=== PATIENT | female | born 1955 | race Caucasian/White ===

== ENCOUNTER → 2024-02-03 | Outpatient (CLI) | payer MEDICARE, OTHER ==
[2024-02-03 07:17] LABS: African American GFR (CKD) 28 (>60 ml/min/1.73 sqM); Blood Urea Nitrogen 44 mg/dL (7-17); Non-African American GFR(CKD) 24 (>60 ml/min/1.73 sqM)
--- NOTE | 2024-02-04 09:38 | CT ---
EXAMINATION TYPE: CT ChestAbdPelvis wo con CT DLP: 1184 mGycm, Automated exposure control for dose reduction was used. DATE OF EXAM: 02/03/2024 8:33 AM COMPARISON: None. CLINICAL INDICATION:Female, 68 years old with history of R10.9 UNSPECIFIED ABDOMINAL PAIN;, abd pain Technique: CT ChestAbdPelvis wo con; Multiple axial images were obtained. Two-dimensional coronal and sagittal reconstructions were obtained. Contrast used: mL of , Oral contrast used: with Oral Contrast Findings: CHEST: LUNGS/ PLEURA: Severe degeneration changes of the lumbar. Trace bilateral pleural effusions. No focal consolidation, pneumothorax present. No pulmonary nodules AIRWAY: Patent and unremarkable. HEART: Size within normal limits. MEDIASTINUM: No gross evidence of adenopathy. VASCULATURE: No aortic aneurysm. Left chest wall [id number] tip terminating in the superior vena cava. MUSCULOSKELETAL: No acute osseous abnormalities. SOFT TISSUES/LYMPH NODES: Unremarkable. LOWER NECK: Multiple surgical clips present in the lower neck. ABDOMEN: ABDOMEN LIVER: Nodular liver suggesting. GALLBLADDER AND BILE DUCTS: Unremarkable. PANCREAS: Unremarkable. SPLEEN: Unremarkable. ADRENAL GLANDS: Unremarkable. KIDNEYS AND URETERS: No evidence of hydronephrosis or renal calculus. The ureters are unremarkable. PELVIS BLADDER: Unremarkable REPRODUCTIVE: Unremarkable. ABDOMEN & PELVIS STOMACH AND BOWEL: No evidence of bowel obstruction. Scattered colonic diverticula without evidence f or inflammation suggest diverticulitis. PERITONEUM: No evidence of pneumoperitoneum. Large amount of free fluid of the abdomen. Mesenteric ed sara in the left upper quadrant VASCULATURE: No evidence of aortic aneurysm. This course of the arterial vasculature. MUSCULOSKELETAL: No acute osseous abnormalities LYMPH NODES: The upper abdomen near the gastroesophageal junction with peripheral calcification large st measuring 5 mm series 3 image [id number]. SOFT TISSUE/ABDOMINAL WALL: Unremarkable IMPRESSION: 1. There is no evidence for diverticulitis. There are scattered colonic diverticula present. No evid ence of free fluid throughout the abdomen limits evaluation for inflammation. 2. Nodular contour to liver suggestive of cirrhosis, Large amount of abdominal ascites and mesenteri c edema in the left upper quadrant. 3. Upper abdominal surgical changes of the gastric lumen with 2 peripherally calcified lesions withi n the gastrohepatic ligament possibly representing lymph nodes. Correlate with history of malignancy or interval change. Comparison with outside imaging may be of benefit.
== END | disposition home or self-care (01) ==
LOC: RADCTMAIN 06:21
PROVIDERS: ATTEND Family Medicine
DX: K57.30 Diverticulosis of large intestine without perforation or abscess without bleeding (principal); K76.89 Other specified diseases of liver; K31.89 Other diseases of stomach and duodenum; R18.8 Other ascites
CPT/HCPCS: 71250; 74176; 82565; 84520

== ENCOUNTER 2024-02-04 14:02 | Inpatient (IN) | payer MEDICARE, OTHER ==
--- NOTE | 2024-02-04 15:13 | ED ---
Abdominal Pain HPI - General Source: patient, RN notes reviewed Mode of arrival: wheelchair Limitations: no limitations <Paulette Bean - Last Filed: 02/04/24 15:11> - General Source: RN notes reviewed, old records reviewed Mode of arrival: wheelchair Limitations: no limitations - History of Present Illness MD Complaint: abdominal pain, other (Ascites) -: days(s) Location: diffuse Migration to: no migration Severity: moderate Severity scale (1-10): 6 Quality: cramping, stabbing, aching Consistency: constant Improves With: nothing Worsens With: nothing Associated Symptoms: nausea, vomiting Treatments Prior to Arrival: other (0) <Mark Joe - Last Filed: 02/06/24 23:02> - General Chief Complaint: Abdominal Pain Stated Complaint: Abd Pain Time Seen by Provider: 02/04/24 15:11 - History of Present Illness Initial Comments: Quick note: 68-year-old female presented to the ER with a chief complaint of abdominal pain. Patient has a past medical history significant of ovarian cancer. Patient has been having abdominal pain for over a week. CT scan was performed yesterday and found to have peritoneal fluid. Patient sent here by Dr. Florence for evaluation and possible paracentesis. Patient also was endorsing nausea. Denies any fevers. (Paulette Bean) Patient is a 60-year-old female to ER for evaluation of abdominal pain. History of ovarian cancer and has abdominal pain worsening for a week now. Patient believes she has ascitic fluid and will need paracentesis. (Mark Joe) - Related Data Home Medications Medication Instructions Recorded Confirmed Anastrozole [Arimidex] 1 mg PO HS 02/04/24 02/04/24 Citalopram Hydrobromide [CeleXA] 20 mg PO HS 02/04/24 02/04/24 Levothyroxine Sodium [Synthroid] 175 mcg PO DAILY 02/04/24 02/04/24 Losartan [Cozaar] 25 mg PO HS 02/04/24 02/04/24 amLODIPine [Norvasc] 5 mg PO DAILY 02/04/24 02/04/24 Allergies Allergy/AdvReac Type Severity Reaction Status Date / Time Penicillins Allergy Rash/Hives, Verified 02/04/24 16:28 swelling Review of Systems ROS Other: All systems not noted in ROS Statement are negative. <DrutessyPaulette - Last Filed: 02/04/24 15:11> ROS Other: All systems not noted in ROS Statement are negative. <Mark Joe - Last Filed: 02/06/24 23:02> ROS Statement: Those systems with pertinent positive or pertinent negative responses have been documented in the HPI. Past Medical History Past Medical History: Cancer, Hypertension Additional Past Medical History / Comment(s): ovarian cancer Past Surgical History: Adenoidectomy, Hysterectomy, Tonsillectomy Past Psychological History: Anxiety Smoking Status: Never smoker Past Alcohol Use History: None Reported Past Drug Use History: Marijuana <DrutessyPaulette - Last Filed: 02/04/24 15:11> General Exam Limitations: no limitations <DrutessyPaulette - Last Filed: 02/04/24 15:11> General appearance: alert, in no apparent distress Head exam: Present: atraumatic, normocephalic, normal inspection Eye exam: Present: normal appearance, PERRL, EOMI. Absent: scleral icterus, conjunctival injection, periorbital swelling ENT exam: Present: normal exam, mucous membranes moist Neck exam: Present: normal inspection. Absent: tenderness, meningismus, lymphadenopathy Respiratory exam: Present: normal lung sounds bilaterally. Absent: respiratory distress, wheezes, rales, rhonchi, stridor Cardiovascular Exam: Present: regular rate, normal rhythm, normal heart sounds. Absent: systolic murmur, diastolic murmur, rubs, gallop, clicks GI/Abdominal exam: Present: soft, normal bowel sounds. Absent: distended, tenderness, guarding, rebound, rigid Extremities exam: Present: normal inspection, full ROM, normal capillary refill. Absent: tenderness, pedal edema, joint swelling, calf tenderness Back exam: Present: normal inspection Neurological exam: Present: alert, oriented X3, CN II-XII intact Psychiatric exam: Present: normal affect, normal mood Skin exam: Present: warm, dry, intact, normal color. Absent: rash <Mark Joe - Last Filed: 02/06/24 23:02> - General Exam Comments Initial Comments: Visual Physical Exam Vital signs reviewed General: Well-appearing, nontoxic, no acute distress. Head: Normocephalic, atraumatic Eyes: PERRLA, EOMI ENT: Airway patent Chest: Nonlabored breathing Skin: No visual rash, normal skin tone Neuro: Alert and oriented 3 Musculoskeletal: No gross abnormalities (Paulette Baen) Course <Mark Joe - Last Filed: 02/06/24 23:02> Vital Signs 02/04/24 02/04/24 14:18 21:50 Temperature 98.6 F Pulse Rate 94 81 Respiratory 18 16 Rate Blood Pressure 126/85 129/88 O2 Sat by Pulse 97 98 Oximetry - Reevaluation(s) Reevaluation #1: 02/04/24 21:26 Medical records reviewed (Mark Joe) Reevaluation #2: 02/04/24 21:26 Patient symptoms unchanged (Mark Joe) Reevaluation #3: 02/04/24 21:26 Patient informed of results questions answered (Mark Joe) Reevaluation #4: Was pt. sent in by a medical professional or institution (, PA, HIDE AND SKIN PROCESSING WORKER, urgent care, hospital, or skilled nursing...) When possible be specific @ -no Did you speak to anyone other than the patient for history (EMS, parent, family, police, friend...)? What history was obtained from this source @ -no Did you review nursing and triage notes (agree or disagree)? Why? @ -agree Are old charts reviewed (outside hosp., previous admission, EMS record, old EKG, old radiological studies, urgent care reports/EKG's, skilled nursing records)? Report findings @ -yes Differential Diagnosis (chest pain, altered mental status, abdominal pain women, abdominal pain men, vaginal bleeding, weakness, fever, dyspnea, syncope, headache, dizziness, GI bleed, back pain, seizure, CVA, palpatations, mental health, musculoskeletal)? @ -prior EKG interpreted by me (3pts min.). @ -no X-rays interpreted by me (1pt min.). @ -no CT interpreted by me (1pt min.). @ -no U/S interpreted by me (1pt. min.). @ -no What testing was considered but not performed or refused? (CT, X-rays, U/S, labs)? Why? @ -none What meds were considered but not given or refused? Why? @ -none Did you discuss the management of the patient with other professionals (professionals i.e. , PA, HIDE AND SKIN PROCESSING WORKER, lab, RT, psych nurse, social staff worker, hosiery bagger, te acher, pharmaceutical officer, immigration case worker)? Give summary @ -no Was smoking cessation discussed for >3mins.? @ -no Was critical care preformed (if so, how long)? @ -no Were there social determinants of health that impacted care today? How? (Homelessness, low income, unemployed, alcoholism, drug addiction, transportation, low edu. Level, literacy, decrease access to med. care, usp, rehab)? @ -none Was there de-escalation of care discussed even if they declined (Discuss DNR or withdrawal of care, Hospice)? DNR status @ -no What co-morbidities impacted this encounter? (DM, HTN, Smoking, COPD, CAD, Cancer, CVA, ARF, Chemo, Hep., AIDS, mental health diagnosis, sleep apnea, morbid obesity)? @ -none Was patient admitted / discharged? Hospital course, mention meds given and route, prescriptions, significant lab abnormalities, going to OR and other pertinent info. @ - 68 female to ER for evaluation abdominal pain with ascites. Patient will be admitted for paracentesis therapeutic Admitted Undiagnosed new problem with uncertain prognosis? @ -no Drug Therapy requiring intensive monitoring for toxicity (Heparin, Nitro, Insulin, Cardizem)? @ -no Were any procedures done? @ -no Diagnosis/symptom? @ -Ascites with abdominal pain Acute, or Chronic, or Acute on Chronic? @ -Acute Uncomplicated (without systemic symptoms) or Complicated (systemic symptoms)? @ -Complicated Side effects of treatment? @ -no Exacerbation, Progression, or Severe Exacerbation? @ -exacerbation Poses a threat to life or bodily function? How? (Chest pain, [place], [place], pneumonia, PE, COPD, DKA, ARF, appy, cholecystitis, CVA, Diverticulitis, Homicidal, Suicidal, threat to staff... and all critical care pts) @ -yes recurrent cancer (Mark Joe) Reevaluation #5: Differential Abdominal Pain Women: Appendicitis, Cholecystitis, diverticulosis, ischemic bowel, pancreatitis, hepatitis, UTI, gastroenteritis, AAA, incarcerated hernia, bowel obstruction, constipation, inflammatory bowel, hepatitis, peptic ulcer disease, splenic infarction, perforated viscus, vulvitis, ovarian torsion, PID, kidney stone, placenta abruption, this is not meant to be an all-inclusive list (Mark Joe) - Consultations Consultation #1: Spoke with sound who agrees to admit this patient (Mark Joe) Medical Decision Making <Paulette Bean - Last Filed: 02/04/24 15:11> - Lab Data Result diagrams: 02/06/24 04:48 02/06/24 04:48 - Radiology Data Radiology results: report reviewed (CT on pelvis is positive for ascites this was done yesterday), image reviewed <Mark Joe - Last Filed: 02/06/24 23:02> - Medical Decision Making I performed the quick note portion of this chart. Electronically signed by Paulette Bean PA-C (Paulette Bean) 68 female to ER for evaluation abdominal pain with ascites. Patient will be admitted for paracentesis therapeutic (Mark Joe) - Lab Data Lab Results 02/04/24 02/04/24 02/04/24 Range/Units 15:28 15:28 15:28 WBC 7.7 (3.8-10.6) k/uL RBC 3.80 (3.80-5.40) m/uL Hgb 11.1 L (11.4-16.0) gm/dL Hct 33.8 L (34.0-46.0) % MCV 88.9 (80.0-100.0) fL MCH 29.3 (25.0-35.0) pg MCHC 33.0 (31.0-37.0) g/dL RDW 12.3 (11.5-15.5) % Plt Count 514 H (150-450) k/uL MPV 7.1 Neutrophils % 77 % Lymphocytes % 15 % Monocytes % 7 % Eosinophils % 1 % Basophils % 0 % Neutrophils # 5.9 (1.3-7.7) k/uL Lymphocytes # 1.1 (1.0-4.8) k/uL Monocytes # 0.5 (0-1.0) k/uL Eosinophils # 0.0 (0-0.7) k/uL Basophils # 0.0 (0-0.2) k/uL PT (10.0-12.5) sec INR (<1.2) Sodium 132 L (137-145) mmol/L Potassium 4.4 (3.5-5.1) mmol/L Chloride 100 (98-107) mmol/L Carbon Dioxide 23 (22-30) mmol/L Anion Gap 9 mmol/L BUN 43 H (7-17) mg/dL Creatinine 1.95 H (0.52-1.04) mg/dL Est GFR (CKD-EPI)AfAm 30 (>60 ml/min/1.73 sqM) Est GFR (CKD-EPI)NonAf 26 (>60 ml/min/1.73 sqM) Glucose 93 (74-99) mg/dL Plasma Lactic Acid Luis 0.9 (0.7-2.0) mmol/L Calcium 6.9 L (8.4-10.2) mg/dL Total Bilirubin 0.4 (0.2-1.3) mg/dL AST 27 (14-36) U/L ALT 23 (4-34) U/L Alkaline Phosphatase 179 H (38-126) U/L Total Protein 5.8 L (6.3-8.2) g/dL Albumin 3.2 L (3.5-5.0) g/dL Amylase 40 (30-110) U/L Lipase 61 (23-300) U/L Urine Color Urine Appearance (Clear) Urine pH (5.0-8.0) Ur Specific Hardy (1.001-1.035) Urine Protein (Negative) Urine Glucose (UA) (Negative) Urine Ketones (Negative) Urine Blood (Negative) Urine Nitrite (Negative) Urine Bilirubin (Negative) Urine Urobilinogen (<2.0) mg/dL Ur Leukocyte Esterase (Negative) Urine RBC (0-5) /hpf Urine WBC (0-5) /hpf Ur Squamous Epith Cells (0-4) /hpf Urine Bacteria (None) /hpf Hyaline Casts (0-2) /lpf Urine Mucus (None) /hpf Fluid Source Fluid Volume mL Fluid Appearance (Clear) Fluid WBC /UL Fluid RBC (Auto) /UL Fld Polynuclear WBCs % % Fluid Lymphocytes % % Fluid Monocytes % % Fld Mesothelial Cell % % Body Fluid Glucose Source Fluid Glucose mg/dL Body Fluid Protein Source Fluid Total Protein mg/dL Body Fluid LDH Source Fluid LDH U/L 02/04/24 02/05/24 02/05/24 Range/Units 19:27 09:25 10:40 WBC (3.8-10.6) k/uL RBC (3.80-5.40) m/uL Hgb (11.4-16.0) gm/dL Hct (34.0-46.0) % MCV (80.0-100.0) fL MCH (25.0-35.0) pg MCHC (31.0-37.0) g/dL RDW (11.5-15.5) % Plt Count (150-450) k/uL MPV Neutrophils % % Lymphocytes % % Monocytes % % Eosinophils % % Basophils % % Neutrophils # (1.3-7.7) k/uL Lymphocytes # (1.0-4.8) k/uL Monocytes # (0-1.0) k/uL Eosinophils # (0-0.7) k/uL Basophils # (0-0.2) k/uL PT 10.0 (10.0-12.5) sec INR 0.9 (<1.2) Sodium (137-145) mmol/L Potassium (3.5-5.1) mmol/L Chloride (98-107) mmol/L Carbon Dioxide (22-30) mmol/L Anion Gap mmol/L BUN (7-17) mg/dL Creatinine (0.52-1.04) mg/dL Est GFR (CKD-EPI)AfAm (>60 ml/min/1.73 sqM) Est GFR (CKD-EPI)NonAf (>60 ml/min/1.73 sqM) Glucose (74-99) mg/dL Plasma Lactic Acid Luis (0.7-2.0) mmol/L Calcium (8.4-10.2) mg/dL Total Bilirubin (0.2-1.3) mg/dL AST (14-36) U/L ALT (4-34) U/L Alkaline Phosphatase (38-126) U/L Total Protein (6.3-8.2) g/dL Albumin (3.5-5.0) g/dL Amylase (30-110) U/L Lipase (23-300) U/L Urine Color Light Yellow Urine Appearance Clear (Clear) Urine pH 5.0 (5.0-8.0) Ur Specific Hardy 1.016 (1.001-1.035) Urine Protein 1+ H (Negative) Urine Glucose (UA) Negative (Negative) Urine Ketones Negative (Negative) Urine Blood Negative (Negative) Urine Nitrite Negative (Negative) Urine Bilirubin Negative (Negative) Urine Urobilinogen <2.0 (<2.0) mg/dL Ur Leukocyte Esterase Small H (Negative) Urine RBC 2 (0-5) /hpf Urine WBC 3 (0-5) /hpf Ur Squamous Epith Cells <1 (0-4) /hpf Urine Bacteria Occasional H (None) /hpf Hyaline Casts 17 H (0-2) /lpf Urine Mucus Occasional H (None) /hpf Fluid Source Ascites Fluid Volume Not Measured mL Fluid Appearance Cloudy A (Clear) Fluid WBC 1142 /UL Fluid RBC (Auto) 2000 /UL Fld Polynuclear WBCs % 44 % Fluid Lymphocytes % 26 % Fluid Monocytes % 29 % Fld Mesothelial Cell % 1 % Body Fluid Glucose Source Fluid Glucose mg/dL Body Fluid Protein Source Fluid Total Protein mg/dL Body Fluid LDH Source Fluid LDH U/L 02/04/ Range/Units 10:40 WBC (3.8-10.6) k/uL RBC (3.80-5.40) m/uL Hgb (11.4-16.0) gm/dL Hct (34.0-46.0) % MCV (80.0-100.0) fL MCH (25.0-35.0) pg MCHC (31.0-37.0) g/dL RDW (11.5-15.5) % Plt Count (150-450) k/uL MPV Neutrophils % % Lymphocytes % % Monocytes % % Eosinophils % % Basophils % % Neutrophils # (1.3-7.7) k/uL Lymphocytes # (1.0-4.8) k/uL Monocytes # (0-1.0) k/uL Eosinophils # (0-0.7) k/uL Basophils # (0-0.2) k/uL PT (10.0-12.5) sec INR (<1.2) Sodium (137-145) mmol/L Potassium (3.5-5.1) mmol/L Chloride (98-107) mmol/L Carbon Dioxide (22-30) mmol/L Anion Gap mmol/L BUN (7-17) mg/dL Creatinine (0.52-1.04) mg/dL Est GFR (CKD-EPI)AfAm (>60 ml/min/1.73 sqM) Est GFR (CKD-EPI)NonAf (>60 ml/min/1.73 sqM) Glucose (74-99) mg/dL Plasma Lactic Acid Luis (0.7-2.0) mmol/L Calcium (8.4-10.2) mg/dL Total Bilirubin (0.2-1.3) mg/dL AST (14-36) U/L ALT (4-34) U/L Alkaline Phosphatase (38-126) U/L Total Protein (6.3-8.2) g/dL Albumin (3.5-5.0) g/dL Amylase (30-110) U/L Lipase (23-300) U/L Urine Color Urine Appearance (Clear) Urine pH (5.0-8.0) Ur Specific Hardy (1.001-1.035) Urine Protein (Negative) Urine Glucose (UA) (Negative) Urine Ketones (Negative) Urine Blood (Negative) Urine Nitrite (Negative) Urine Bilirubin (Negative) Urine Urobilinogen (<2.0) mg/dL Ur Leukocyte Esterase (Negative) Urine RBC (0-5) /hpf Urine WBC (0-5) /hpf Ur Squamous Epith Cells (0-4) /hpf Urine Bacteria (None) /hpf Hyaline Casts (0-2) /lpf Urine Mucus (None) /hpf Fluid Source Fluid Volume mL Fluid Appearance (Clear) Fluid WBC /UL Fluid RBC (Auto) /UL Fld Polynuclear WBCs % % Fluid Lymphocytes % % Fluid Monocytes % % Fld Mesothelial Cell % % Body Fluid Glucose Source Ascites Fluid Glucose <2 mg/dL Body Fluid Protein Source Ascites Fluid Total Protein >3600 mg/dL Body Fluid LDH Source Ascites Fluid LDH 691 U/L Disposition <Paulette Bean - Last Filed: 02/04/24 15:11> Is patient prescribed a controlled substance at d/c from ED?: No Time of Disposition: 16:50 <Mark Joe - Last Filed: 02/06/24 23:02> Clinical Impression: Abdominal pain, Abdominal colic, Ascites Disposition: ADMITTED IP TO THIS HOSP Condition: Stable
[2024-02-04 15:34] LABS: Basophils % (A) 0 %; Eosinophils % (A) 1 %; HCT 33.8 % (34.0-46.0); HGB 11.1 gm/dL (11.4-16.0); Lymphocytes # (A) 1.1 k/uL (1.0-4.8); Lymphocytes % (A) 15 %; MCH 29.3 pg (25.0-35.0); MCV 88.9 fL (80.0-100.0); Mean Platelet Volume 7.1; Monocytes # (A) 0.5 k/uL (0-1.0); Monocytes % (A) 7 %; Neutrophils # (A) 5.9 k/uL (1.3-7.7); Neutrophils % (A) 77 %; Platelet Count 514 k/uL (150-450); RDW 12.3 % (11.5-15.5); WBC 7.7 k/uL (3.8-10.6)
[2024-02-04 15:47] LABS: ALT 23 U/L (4-34); AST 27 U/L (14-36); African American GFR (CKD) 30 (>60 ml/min/1.73 sqM); Albumin 3.2 g/dL (3.5-5.0); Alkaline Phosphatase 179 U/L (38-126); Amylase 40 U/L (30-110); Anion Gap 9 mmol/L; Blood Urea Nitrogen 43 mg/dL (7-17); Calcium 6.9 mg/dL (8.4-10.2); Carbon Dioxide 23 mmol/L (22-30); Chloride 100 mmol/L (98-107); Glucose 93 mg/dL (74-99); Lipase 61 U/L (23-300); Non-African American GFR(CKD) 26 (>60 ml/min/1.73 sqM); Potassium 4.4 mmol/L (3.5-5.1); Sodium 132 mmol/L (137-145); Total Bilirubin 0.4 mg/dL (0.2-1.3); Total Protein 5.8 g/dL (6.3-8.2)
[2024-02-04] MEDS ORDERED: NALOXONE 0.4 MG/ML 1 ML VIAL IV PRN (16:31)
[2024-02-04] MEDS: HYDROmorphone 1 MG/ML 1 ML SYRINGE IVP STA (18:49)
[2024-02-04] MEDS ORDERED: ACETAMINOPHEN TAB 325 MG TAB PO PRN (19:31)
[2024-02-04 19:59] LABS: Appearance,Urine Clear (Clear); Bacteria,Urine Occasional /hpf; Bilirubin,Urine Negative (Negative); Blood,Urine Negative (Negative); Color,Urine Light Yellow; Glucose,Urine (UA) Negative (Negative); Hyaline Casts,Urine 17 /lpf (0-2); Ketones,Urine Negative (Negative); Leukocyte Esterase,Urine Small (Negative); Mucus,Urine Occasional /hpf; Nitrite,Urine Negative (Negative); Protein,Urine 1+ (Negative); RBC,Urine 2 /hpf (0-5); Specific Gravity,Urine 1.016 (1.001-1.035); Squamous Epithelial Cell,Urine <1 /hpf (0-4); Urobilinogen,Urine <2.0 mg/dL (<2.0); WBC,Urine 3 /hpf (0-5)
--- NOTE | 2024-02-04 23:44 | P.HPIM ---
History of Present Illness H&P Date: 02/04/24 Chief Complaint: Abdominal pain 68-year-old female with history of recurrent ovarian cancer Patient has been dealing with some abdominal pain and diarrhea for the past 10 days which has been getting worse she saw her doctor who decided to monitor it closely ordered a CAT scan of the abdomen to rule out diverticulitis patient denies any GI bleeding denies any fevers denies any chills denies any nausea vomiting denies any chest pain or trouble breathing. She had CAT scan of the abdomen done at ED which showed no diverticulitis. Showed liver cirrhosis and large amount of abdominal ascites Her doctor recommended that she goes to the hospital for admission for bibi moscoso Patient initially diagnosed with ovarian cancer back in 2010 she had surgery done within the first recurrence in 2014 she required chemotherapy then she had another recurrence in 2013 and then 2019 since which she has been on anastrozole. Patient denies any tobacco smoking illicit drugs or heavy alcohol review of systems Pertinent positives as noted in HPI. All other systems were reviewed and are negative on exam Constitutional: No acute distress, conversant, pleasant Eyes: Anicteric sclerae, moist conjunctiva, Pupils equal round reactive to light ENMT: NC/AT Oropharynx clear, no erythema, or exudates Neck: Supple, no masses, or JVD No carotid bruits No thyromegaly Lungs: Clear to auscultation Clear to percussion Normal respiratory effort, no accessory muscle use Cardiovascular: Heart regular in rate and rhythm, No murmurs, gallops, or rubs No peripheral edema Abdominal: Soft mildly distended, shifting dullness positive Nontender, no guarding, rebound or rigidity Abdomen moving with respiration Normoactive bowel sounds Extremities: No digital cyanosis No clubbing Pedal pulses intact and symmetrical Radial pulses intact and symmetrical No calf tenderness Psychiatric: Alert and oriented to person, place and time Appropriate affect fair judgement Neuro Muscles Strength 5/5 in all 4 extremities Sensation to light touch grossly present throughout Cranial nerves II-XII grossly intact Past Medical History Past Medical History: Cancer, Hypertension Additional Past Medical History / Comment(s): ovarian cancer History of Any Multi-Drug Resistant Organisms: None Reported Past Surgical History: Adenoidectomy, Hysterectomy, Tonsillectomy Past Anesthesia/Blood Transfusion Reactions: No Reported Reaction Past Psychological History: Anxiety Smoking Status: Former smoker Past Alcohol Use History: None Reported Past Drug Use History: Marijuana Additional Drug Use History / Comment(s): patient states she does MJ before bedtime Medications and Allergies Home Medications Medication Instructions Recorded Confirmed Type Anastrozole [Arimidex] 1 mg PO HS 02/04/24 02/04/24 History Citalopram Hydrobromide [CeleXA] 20 mg PO HS 02/04/24 02/04/24 History Levothyroxine Sodium [Synthroid] 175 mcg PO DAILY 02/04/24 02/04/24 History Losartan [Cozaar] 25 mg PO HS 02/04/24 02/04/24 History amLODIPine [Norvasc] 5 mg PO DAILY 02/04/24 02/04/24 History Allergies Allergy/AdvReac Type Severity Reaction Status Date / Time Penicillins Allergy Rash/Hives, Verified 02/04/24 16:28 swelling Physical Exam Vitals: Vital Signs Temp Pulse Pulse Resp BP BP Pulse Ox 02/04/24 22:52 98.3 F 74 15 103/72 95 02/04/24 21:50 81 16 129/88 98 02/04/24 14:18 98.6 F 94 18 126/85 97 Intake and Output 02/04/24 02/04/24 02/05/24 14:59 22:59 06:59 Other: Weight 72.575 kg 72.575 kg Results CBC & Chem 7: 02/04/24 15:28 02/04/24 15:28 Labs: Abnormal Lab Results - Last 24 Hours (Table) 02/04/24 02/04/24 02/04/24 Range/Units 15:28 15:28 19:27 Hgb 11.1 L (11.4-16.0) gm/dL Hct 33.8 L (34.0-46.0) % Plt Count 514 H (150-450) k/uL Sodium 132 L (137-145) mmol/L BUN 43 H (7-17) mg/dL Creatinine 1.95 H (0.52-1.04) mg/dL Calcium 6.9 L (8.4-10.2) mg/dL Alkaline Phosphatase 179 H (38-126) U/L Total Protein 5.8 L (6.3-8.2) g/dL Albumin 3.2 L (3.5-5.0) g/dL Urine Protein 1+ H (Negative) Ur Leukocyte Esterase Small H (Negative) Urine Bacteria Occasional H (None) /hpf Hyaline Casts 17 H (0-2) /lpf Urine Mucus Occasional H (None) /hpf Thrombosis Risk Factor Assmnt - Choose All That Apply Any of the Below Risk Factors Present?: Yes Each Factor Represents 1 point: Obesity (BMI >25) Other Risk Factors: Yes Each Risk Factor Represents 2 Points: Age 61-74 years Other congenital or acquired thrombophilia - If yes, enter type in comment: No Thrombosis Risk Factor Assessment Total Risk Factor Score: 3 Thrombosis Risk Factor Assessment Level: Moderate Risk Assessment and Plan Assessment: 68-year-old female with history of recurrent ovarian cancer on anastrozole coming in after found to have large amount of ascites I discussed case with ED doctor accepted the admission for paracentesis with anticipated length of stay less than 2 midnights Recurrent ovarian cancer continue outpatient follow-up Large volume ascites and abdominal pain Symptomatic control IR guided draining of ascites Consult IR for ultrasound-guided paracentesis continue anastazole CT abdomen was done this morning showing large volume ascites, no evidence of acute diverticulitis Hypothyroid continue with levothyroxine Chronic kidney disease stable Blood work showing white count 7.7 hemoglobin 11.1 Sodium 132 potassium 4.4 Monitor urine output Monitor renal function Avoid nephrotoxic meds Full code DVT prophylaxis mechanical and pharmacological with heparin 5000 units SQ 3 times daily GI prophylaxis Protonix 40 mg p.o. daily
[2024-02-05] MEDS: ANASTROZOLE 1 MG TAB PO SCH (00:24)
[2024-02-05] MEDS: HEPARIN SODIUM,PORCINE 5,000 UNIT/ML 1 ML VIAL SQ SCH (00:24)
[2024-02-05] MEDS: CITALOPRAM HYDROBROMIDE 20 MG TAB PO SCH (00:24)
[2024-02-05] MEDS: ZOLPIDEM 5 MG TAB PO ONE (02:03)
[2024-02-05] MEDS: LEVOTHYROXINE 88 MCG TAB PO SCH (05:15)
[2024-02-05 10:09] LABS: INR 0.9 (<1.2)
--- NOTE | 2024-02-05 11:50 | US ---
EXAMINATION TYPE: US paracentesis abd w/image DATE OF EXAM: 02/05/2024 11:25 AM CLINICAL INDICATION:Female, 68 years old with history of see IR consult for ordering information; COMPARISON: CT 02/03/2024 ATTENDING: Dr. Neil Bradshaw PROCEDURE: Informed consent was obtained. The risks of the procedure were extensively explained incl uding risk of damage to surrounding bowel with perforation and need for additional procedures. Proced ure was performed in the ultrasound procedure suite. Ultrasound imaging of the abdomen demonstrate as citic fluid. An appropriate access site was localized to the right lower abdomen. Timeout was taken p er protocol. The skin was prepped and draped in the usual sterile fashion and then locally anesthetiz ed with 1% lidocaine. The peritoneal cavity was then accessed via a 5-Malay one-step needle/cathete r. Approximately 4300 cc of clear straw-colored fluid was obtained. Samples were sent to the lab for analysis. Postprocedural imaging of the abdomen demonstrate a minimal amount of abdominal fluid. Patient tolerated procedure well without immediate complication. Hemostasis at the procedural site w as obtained with a sterile bandage placed. The patient was monitored in the holding area following th e procedure and was subsequently discharged in stable condition. IMPRESSION: Ultrasound guided paracentesis, with approximately 4300 cc of clear straw-colored fluid drained. P athology results pending. No immediate complications were evident.
[2024-02-05] MEDS: MORPHINE SULFATE 4 MG/ML SYRINGE IV PRN (13:39)
[2024-02-05] MEDS: amLODIPine 5 MG TAB PO SCH (13:46)
[2024-02-05] MEDS: ALBUMIN HUMAN 25% 50 ML in EMPTY BAG 1 BAG IVPB SCH (14:17)
--- NOTE | 2024-02-05 16:03 | P.PN ---
Subjective Progress Note Date: 02/05/24 Hospital course: Patient is a pleasant 68-year-old female past medical history of recurrent ovarian cancer, hypertension, and anxiety. Presented to the emergency department on 02/04/2024 secondary to abdominal pain. Patient underwent an outpatient CT revealing a large amount of abdominal ascites and patient was instructed by her PCP that she needed to go to the emergency department for admission to the hospital secondary to need for paracentesis. Upon arrival to our facility, patient underwent evaluation. Vital signs upon arrival show blood pressure 126/85, heart rate 94, respiratory rate 18, temp 98.6 F, and SpO2 of 97% on room air. Labs completed and reviewed. CBC showing normocytic anemia with hemoglobin of 11.1 and thrombocytosis with platelet count of 514. BMP sh owing hyponatremia with sodium of 132 and acute kidney injury with BUN of 43, creatinine 1.95, and GFR of 26. Liver profile showing elevated alkaline phosphatase of 179. Patient was admitted under our services with consultation to interventional radiology for ultrasound-guided paracentesis. Physical exam: Vital signs reviewed and stable. General: Nontoxic, no distress and appears stated age. Derm: Skin warm and dry, normal coloration for ethnicity. Head: Atraumatic, normocephalic and symmetric. Eyes: EOMs intact, no lid lag, and anicteric sclera Mouth: no lip lesions, mucus membranes moist Cardiovascular: regular rate and rhythm with normal S1S2, systolic murmur, positive posterior tibial pulses bilaterally, and cap refill < 2 seconds. Lungs: Respirations even, regular, and unlabored on room air. Lungs CTA bilaterally, no rhonchi, no rales, no wheezing, and no accessory muscle usage. Abdominal: soft, diffuse abdominal tenderness status post paracentesis, no guarding, no appreciable organomegaly Ext: ROM intact. No gross muscle atrophy, no edema, no contractures Neuro: Speech clear, face symmetrical and CN II-XII grossly intact with no noted focal neuro deficits Psych: Alert and oriented to person, place, time, and situation. Appropriate and pleasant affect. Assessment and Plan of Care: Large volume ascites with abdominal pain Recurrent ovarian cancer Acute kidney injury Patient underwent ultrasound-guided paracentesis with a documented removal of 4300 cc of clear straw-colored fluid. Follow-up on ascitic pathology and culture results. Continued close monitoring of renal function, hold nephrotoxic agents such as losartan. Order placed for albumin 25 g IVPB status post paracentesis. If no improvement in renal function, will need nephrology consult. Hypothyroidism Continue daily medication regimen with levothyroxine 175 mcg daily and anastrozole 1 mg nightly. Anxiety Continue daily medication regimen with Celexa 20 mg nightly. Hypertension Hold losartan secondary to acute kidney injury and continue daily medication regimen with amlodipine 5 mg daily. Data and imaging reviewed: Labs completed and reviewed. CBC showing normocytic anemia with hemoglobin of 11.1 and thrombocytosis with platelet count of 514. BMP showing hyponatremia with sodium of 132 and acute kidney injury with BUN of 43, creatinine 1.95, and GFR of 26. Liver profile showing elevated alkaline phosphatase of 179. Coagulation profile showing INR of 0.9. Vital signs reviewed and stable with blood pressure 114/73, heart rate 78, respiratory rate 16, temp 98.8 F, and SpO2 of 98% on room air. Reviewed paracentesis ultrasound report. CODE STATUS: Full code DVT prophylaxis: Heparin Anticipated discharge date: 24 to [address]: Home Patient was seen independently by Nurse Pracitioner. This document was prepared using [email or web address] dictation software. Please allow for errors in case preparer and liner, while rare they do occur. Rafa Romero NP rendered care for this patient independently, reviewed the findings and plan as documented in the note above. I did not physically speak with or examine the patient on this date. Objective - Vital Signs Vital signs: Vital Signs Temp 98.1 F 02/05/24 07:35 Pulse 88 02/05/24 07:35 Resp 18 02/05/24 07:35 BP 102/66 02/05/24 07:35 Pulse Ox 96 02/05/24 07:35 FiO2 Intake & Output 02/04/24 02/05/24 02/05/24 18:59 06:59 18:59 Weight 72.575 kg Other: # Voids 2 - Labs CBC & Chem 7: 02/04/24 15:28 02/04/24 15:28 Labs: Abnormal Lab Results - Last 24 Hours (Table) 02/04/24 02/04/24 02/04/24 Range/Units 15:28 15:28 19:27 Hgb 11.1 L (11.4-16.0) gm/dL Hct 33.8 L (34.0-46.0) % Plt Count 514 H (150-450) k/uL Sodium 132 L (137-145) mmol/L BUN 43 H (7-17) mg/dL Creatinine 1.95 H (0.52-1.04) mg/dL Calcium 6.9 L (8.4-10.2) mg/dL Alkaline Phosphatase 179 H (38-126) U/L Total Protein 5.8 L (6.3-8.2) g/dL Albumin 3.2 L (3.5-5.0) g/dL Urine Protein 1+ H (Negative) Ur Leukocyte Esterase Small H (Negative) Urine Bacteria Occasional H (None) /hpf Hyaline Casts 17 H (0-2) /lpf Urine Mucus Occasional H (None) /hpf
[2024-02-05] MEDS ORDERED: LOSARTAN 25 MG TAB PO SCH (21:00)
[2024-02-05 21:34] LABS: Appearance,BF Cloudy (Clear)
[2024-02-05 23:46] LABS: LDH, Body Fluid Source Ascites; T. Protein, Body Fluid Source Ascites; Total Protein, Body Fluid >3600 mg/dL
[2024-02-05 23:54] LABS: Glucose, BF Source Ascites; Glucose, Body Fluid <2 mg/dL
[2024-02-06 08:24] VITALS: BP 107/64; PULSE 78; RESP 18; TEMP 98.8
[2024-02-06 09:16] LABS: HCT 29.7 % (37.2-46.3); HGB 9.6 g/dL (12.0-15.0); MCH 28.7 pg (27.0-32.0); MCHC 32.3 g/dL (32.0-37.0); MCV 88.9 FL (80.0-97.0); NRBC Per 100 WBC 0 X 10*3/uL (0.00-0.01); Platelet Count 432 X 10*3/uL (140-440); RBC 3.34 X 10*6/uL (4.10-5.20); RDW 12.4 % (11.5-14.5); WBC 4.87 X 10*3/uL (4.50-10.00)
[2024-02-06 09:23] LABS: ALT 16 U/L (8-44); AST 18 U/L (13-35); Albumin 3.1 g/dL (3.8-4.9); Albumin/Globulin Ratio 1.72 Ratio (1.60-3.17); Alkaline Phosphatase 133 U/L (41-126); BUN/Creat Ratio 24.93 Ratio (12.00-20.00); Blood Urea Nitrogen 34.9 mg/dL (9.0-27.0); Calcium 6.8 mg/dL (8.7-10.3); Chloride 104 mmol/L (96-109); Globulin 1.8 g/dL (1.6-3.3); Glucose 85 mg/dL (70-110); Magnesium 2.7 mg/dL (1.5-2.4); Potassium 4.9 mmol/L (3.5-5.5); Sodium 138 mmol/L (135-145); Total Bilirubin <0.2 mg/dL (0.3-1.2); Total Protein 4.9 g/dL (6.2-8.2)
--- NOTE | 2024-02-06 12:27 | P.DS ---
Providers Date of admission: 02/05/24 13:59 Expected date of discharge: 02/06/24 Attending physician: Rehana Baxter DO Primary care physician: Stated None Hospital Course: Discharge Diagnosis: Large volume ascites with abdominal pain. Patient underwent ultrasound-guided paracentesis with a documented removal of 4300 cc of clear straw-colored fluid and received albumin 25 g IVPB post paracentesis. Recurrent ovarian cancer. Patient to continue to follow-up outpatient with Dr. Florence. Acute kidney injury, resolved. Renal function upon discharge showing BUN of 34.9, creatinine 1.4, GFR 41. Hypothyroidism. Continue daily medication regimen with levothyroxine 175 mcg daily and anastrozole 1 mg nightly. Anxiety. Continue daily medication regimen with Celexa 20 mg nightly. Hypertension. Continue home medication regimen with amlodipine 5 mg daily and losartan 25 mg nightly. Hospital Course: Patient is a pleasant 68-year-old female past medical history of recurrent ovarian cancer, hypertension, and anxiety. Presented to the emergency department on 02/04/2024 secondary to abdominal pain. Patient underwent an outpatient CT revealing a large amount of abdominal ascites and patient was instructed by her PCP that she needed to go to the emergency department for admission to the hospital secondary to need for paracentesis. Upon arrival to our facility, patient underwent evaluation. Vital signs upon arrival show blood pressure 126/85, heart rate 94, respiratory rate 18, temp 98.6 F, and SpO2 of 97% on room air. Labs completed and reviewed. CBC showing normocytic anemia with hemoglobin of 11.1 and thrombocytosis with platelet count of 514. BMP showing hyponatremia with sodium of 132 and acute kidney injury with BUN of 43, creatinine 1.95, and GFR of 26. Liver profile showing elevated alkaline phosphatase of 179. Patient was admitted under our services with consultation to interventional radiology for ultrasound-guided paracentesis. Patient underwent ultrasound-guided paracentesis with a documented removal of 4300 cc of clear straw-colored fluid and received albumin 25 g IVPB post paracentesis. Patient monitored overnight and doing well. She is free from any complaints at this time. Ascitic fluid showing cloudy appearance with 1142 WBCs, 2000 RBCs, 44 Esha nuclear WBCs percentage fluid lymphocyte percentage of 26, fluid monocyte percentage of 29, fluid mesothelial cell percentage of 1, fluid glucose less than 2, fluid total protein greater than 3600, and fluid LDH of 691. Pathology results pending, oncologist Dr. Florence to follow-up with pathology results as he is currently treating patient for recurrent ovarian cancer and sent patient to facility for paracentesis. Patient is medically stable for discharge. Patient to follow-up outpatient with PCP and oncologist. Physical exam: Vital signs reviewed and stable. General: Nontoxic, no distress and appears stated age. Derm: Skin warm and dry, normal coloration for ethnicity. Head: Atraumatic, normocephalic and symmetric. Eyes: EOMs intact, no lid lag, and anicteric sclera Mouth: no lip lesions, mucus membranes moist Cardiovascular: regular rate and rhythm with normal S1S2, systolic murmur, positive posterior tibial pulses bilaterally, and cap refill < 2 seconds. Lungs: Respirations even, regular, and unlabored on room air. Lungs CTA bilaterally, no rhonchi, no rales, no wheezing, and no accessory muscle usage. Abdominal: soft, nontender upon palpation, no guarding, no appreciable organomegaly Ext: ROM intact. No gross muscle atrophy, no edema, no contractures Neuro: Speech clear, face symmetrical and CN II-XII grossly intact with no noted focal neuro deficits Psych: Alert and oriented to person, place, time, and situation. Appropriate and pleasant affect. A total of 33 minutes of time were spent preparing this complex discharge summary. Pt was discharged on 02/06/2024 at 12:26 PM. Patient was seen independently by Nurse Practitioner. This document was prepared using [employer] dictation software. Please allow for errors in physicist cryogenics while rare they do occur. Rafa Romero NP rendered care for this patient independently, reviewed the findings and plan as documented in the note above. I did not physically speak with or examine the patient on this date. Patient Condition at Discharge: Stable Plan - Discharge Summary Discharge Rx Participant: No New Discharge Prescriptions: No Action Anastrozole [Arimidex] 1 mg PO HS Levothyroxine Sodium [Synthroid] 175 mcg PO DAILY amLODIPine [Norvasc] 5 mg PO DAILY Losartan [Cozaar] 25 mg PO HS Citalopram Hydrobromide [CeleXA] 20 mg PO HS Discharge Medication List Anastrozole [Arimidex] 1 mg PO HS 02/04/24 [History] Citalopram Hydrobromide [CeleXA] 20 mg PO HS 02/04/24 [History] Levothyroxine Sodium [Synthroid] 175 mcg PO DAILY 02/04/24 [History] Losartan [Cozaar] 25 mg PO HS 02/04/24 [History] amLODIPine [Norvasc] 5 mg PO DAILY 02/04/24 [History] Follow up Appointment(s)/Referral(s): Betsy Galaviz MD [REFERRING] - 1 Week (Recommending calling to establish care with a primary care provider.) Ashok Florence MD [STAFF PHYSICIAN] - 1 Week Patient Instructions/Handouts: Ascites (DC), Paracentesis (DC) Activity/Diet/Wound Care/Special Instructions: Activity: As tolerated. Take breaks as needed. Diet: Heart healthy and carb consistent diet. Avoid salts, or foods with hidden salts such as canned or boxed foods and frozen dinners. Extra salt makes your heart work harder and traps the fluid in your body for longer. Special Instructions: Take all of your medications as directed and remember to keep all of your doctor's appointments and follow-up as needed. Thank you for allowing us to participate in your care, it was truly a pleasure having you for our patient!!! . Discharge Disposition: HOME SELF-CARE
--- NOTE | 2024-02-09 21:35 | CDI ---
Documentation Clarification Form Date: 02/09/2024 09:24:19 PM From: Nereida Spears Phone: Admit Date: 02/05/2024 01:59:00 PM Patient Name: Rhonda Iyer Visit Number: [id number] Discharge Date: 02/06/2024 01:06:00 PM ATTENTION: The Clinical Documentation Specialists (CDI) and [facility] Coding Staff appreciate your assistance in clarifying documentation. Please respond to the clarification below the line at the bottom and electronically sign. The CDI & [facility] Coding staff will review the response and follow-up if needed. Please note: Queries are made part of the Legal Health Record. If you have any questions, please contact the author of this message via ITS. Dr. Jairo Vee Unspecified CKD is documented H&P. Additional clarification regarding the stage of CKD is requested. History/Risk Factors: 68yo F, recurrentovarian cancer, ascites, hypothyroid, cirrhosis, SMILEY, hyponatremia Clinical Indicators: BUN: 43 02/05 34.9 CR: 1.95 02/05 1.4 GFR: 26 02/05 41 Treatment: monitored Please clarify the stage of the CKD, if known: [ ] CKD Stage 3b [ ] CKD Stage 4 [ ] Other, please specify [ x ] Unable to determine Reference: National Kid[employer] Stage 1 eGFR = 90 and kidney damage for =3 months Stage 2 eGFR 60-89 and kidney damage for =3 months Stage 3a eGFR 45-59 and kidney damage for =3 months Stage 3b eGFR 30-44 and kidney damage for =3 months Stage 4 eGFR 15-29 r and kidney damage for =3 months Stage 5 eGFR <15 and kidney damage for =3 months (Template Last revised: September 2023) MTDD
--- NOTE | 2024-02-10 11:38 | CDI ---
Documentation Clarification Form Date: 02/10/2024 11:25:53 AM From: Nereida Spears Phone: Admit Date: 02/05/2024 01:59:00 PM Patient Name: Rhonda Iyer Visit Number: [id number] Discharge Date: 02/06/2024 01:06:00 PM ATTENTION: The Clinical Documentation Specialists (CDI) and [facility] Coding Staff appreciate your assistance in clarifying documentation. Please respond to the clarification below the line at the bottom and electronically sign. The CDI & [facility] Coding staff will review the response and follow-up if needed. Please note: Queries are made part of the Legal Health Record. If you have any questions, please contact the author of this message via ITS. Dr. Jairo Vee There is documentation of ascites per ED Note and throughout. Pt. also has cirrhosis and recurrent ovarian cancer. Additional clarification is requested. History/Risk Factors: 68yo F, recurrent ovarian cancer, ascites, hypothyroid, cirrhosis, SMILEY, hyponatremia Clinical Indicators: 4300 cc of clear straw-colored fluid Treatment: Ultrasoundguidedparacentesis, with approximately drained. Preliminary Path results no anaerobes. Can you please clarify the underlying cause/type of ascites? [ x ] Cirrhosis [ ] Ovarian cancer [ ] Other, please specify [ ] Unable to determine (Template Last Revised: November 2020) MTDD
== END 2024-02-06 13:06 | disposition home or self-care (01) | DRG 755 ==
LOC: EC 14:02 → 6NMEDSUR 16:52 → OBSVTOIN 02-05 13:59
PROVIDERS: ADMIT Internal Medicine; ATTEND Internal Medicine
PROC: 0W9G3ZZ Drainage of Peritoneal Cavity, Percutaneous Approach (ICD-10-PCS; principal; 2024-02-05)
DX: C56.9 Malignant neoplasm of unspecified ovary (principal); E87.1 Hypo-osmolality and hyponatremia; N17.9 Acute kidney failure, unspecified; R18.8 Other ascites; K74.60 Unspecified cirrhosis of liver; E03.9 Hypothyroidism, unspecified; D63.0 Anemia in neoplastic disease; I12.9 Hypertensive chronic kidney disease with stage 1 through stage 4 chronic kidney disease, or unspecified chronic kidney disease; R74.8 Abnormal levels of other serum enzymes; F41.9 Anxiety disorder, unspecified; N18.9 Chronic kidney disease, unspecified; D75.839 Thrombocytosis, unspecified; Z79.890 Hormone replacement therapy; Z79.899 Other long term (current) drug therapy; Z88.0 Allergy status to penicillin; Z87.891 Personal history of nicotine dependence; Z92.21 Personal history of antineoplastic chemotherapy; Z85.43 Personal history of malignant neoplasm of ovary; Z90.710 Acquired absence of both cervix and uterus
CPT/HCPCS: 36415; 49083; 80053; 81001; 82150; 82945; 83605; 83615; 83690; 83735; 84157; 85025; 85027; 85610; 87070; 87075; 87205; 88108; 88305; 88341; 88342; 89050; 99285

== ENCOUNTER 2024-02-26 08:58 | Emergency (ER) | payer MEDICARE, OTHER ==
[2024-02-26 09:24] VITALS: TEMP 98.3
--- NOTE | 2024-02-26 10:21 | ED ---
General Adult HPI - General Source: patient, RN notes reviewed Mode of arrival: ambulatory Limitations: no limitations <Rosibel Rasmussen - Last Filed: 02/26/24 10:20> - General Source: patient, RN notes reviewed Mode of arrival: ambulatory Limitations: no limitations <Cali Granger - Last Filed: 02/26/24 17:35> - General Chief complaint: Recheck/Abnormal Lab/Rx Stated complaint: ascities Time Seen by Provider: 02/26/24 10:20 - History of Present Illness Initial comments: Quick [id number] female with history of ovarian cancer presenting with chief complaint of possible ascitic fluid. States she was sent by her physician for evaluation and possible paracentesis. Patient reports she was admitted on February 04 ascitic fluid and underwent paracentesis. (Rosibel Rasmussen) Patient is a 68-year-old female present to the emergency department hoping for paracentesis. Patient states her doctor advised her to come. Patient does have history of ovarian cancer and does have history of paracentesis done a few weeks ago. Patient states the fluid has recollected. Patient states she feels full and does have some mild dyspnea (Cali Granger) - Related Data Home Medications Medication Instructions Recorded Confirmed Anastrozole [Arimidex] 1 mg PO HS 02/04/24 02/26/24 Citalopram Hydrobromide [CeleXA] 20 mg PO HS 02/04/24 02/26/24 Levothyroxine Sodium [Synthroid] 175 mcg PO DAILY 02/04/24 02/26/24 Losartan [Cozaar] 25 mg PO HS 02/04/24 02/26/24 amLODIPine [Norvasc] 5 mg PO DAILY 02/04/24 02/26/24 Acetaminophen [Tylenol 8 Hour] 650 - 1,300 mg PO Q8H PRN 02/26/24 02/26/24 busPIRone HCL [Buspar] 7.5 mg PO BID PRN 02/26/24 02/26/24 Allergies Allergy/AdvReac Type Severity Reaction Status Date / Time amoxicillin Allergy Rash/Hives Verified 02/26/24 14:49 on entire body Penicillins Allergy Rash/Hives, Verified 02/26/24 14:49 swelling Review of Systems ROS Other: All systems not noted in ROS Statement are negative. <Rosibel Rasmussen - Last Filed: 02/26/24 10:20> ROS Other: All systems not noted in ROS Statement are negative. Constitutional: Denies: fever Eyes: Denies: eye pain ENT: Denies: ear pain Respiratory: Denies: cough Cardiovascular: Denies: chest pain Gastrointestinal: Reports: as per HPI Genitourinary: Denies: dysuria Musculoskeletal: Denies: back pain <Cali Granger - Last Filed: 02/26/24 17:35> ROS Statement: Those systems with pertinent positive or pertinent negative responses have been documented in the HPI. Past Medical History Past Medical History: Cancer, Hypertension Additional Past Medical History / Comment(s): ovarian cancer History of Any Multi-Drug Resistant Organisms: None Reported Past Surgical History: Adenoidectomy, Hysterectomy, Tonsillectomy Past Anesthesia/Blood Transfusion Reactions: No Reported Reaction Past Psychological History: Anxiety Smoking Status: Former smoker Past Alcohol Use History: None Reported Past Drug Use History: Marijuana <Rosibel Rasmussen - Last Filed: 02/26/24 10:20> General Exam Limitations: no limitations <Rosibel Rasmussen - Last Filed: 02/26/24 10:20> Limitations: no limitations General appearance: alert, in no apparent distress Head exam: Present: normocephalic Eye exam: Present: normal appearance Neck exam: Present: normal inspection Respiratory exam: Present: normal lung sounds bilaterally Cardiovascular Exam: Present: regular rate, normal rhythm GI/Abdominal exam: Present: soft, distended (Mild to moderate ascites) Extremities exam: Present: normal inspection Neurological exam: Present: alert Psychiatric exam: Present: normal affect, normal mood Skin exam: Present: normal color <Cali Granger - Last Filed: 02/26/24 17:35> - General Exam Comments Initial Comments: Visual Physical Exam Vital signs reviewed General: Well-appearing, nontoxic, no acute distress. Head: Normocephalic, atraumatic Eyes: PERRLA, EOMI ENT: Airway patent Chest: Nonlabored breathing Skin: No visual rash, normal skin tone Neuro: Alert and oriented 3 Musculoskeletal: No gross abnormalities (Rosibel Rasmussen) Course Vital Signs 02/26/24 02/26/24 09:22 14:04 Temperature 98.3 F Pulse Rate 78 75 Respiratory 16 18 Rate Blood Pressure 121/81 133/95 O2 Sat by Pulse 97 99 Oximetry Medical Decision Making <Rosibel Rasmussen - Last Filed: 02/26/24 10:20> - Lab Data Result diagrams: 02/26/24 11:32 02/26/24 11:32 <GrangerCali - Last Filed: 02/26/24 17:35> - Medical Decision Making I completed the quick note portion of this chart signed Rosibel Rasmussen PA-C ([facility],Rosibel) Was pt. sent in by a medical professional or institution (, PA, [employer], urgent care, hospital, or correction...) When possible be specific @ -No Did you speak to anyone other than the patient for history (EMS, parent, family, police, friend...)? What history was obtained from this source @ -No Did you review nursing and triage notes (agree or disagree)? Why? @ -I reviewed and agree with nursing and triage notes Were old charts reviewed (outside hosp., previous admission, EMS record, old EKG, old radiological studies, urgent care reports/EKG's, correction records)? Report findings @ -Previous admission reviewed Differential Diagnosis (chest pain, altered mental status, abdominal pain women, abdominal pain men, vaginal bleeding, weakness, fever, dyspnea, syncope, headache, dizziness, GI bleed, back pain, seizure, CVA, palpatations, mental health, musculoskeletal)? @ -Differential Abdominal Pain Men: Appendicitis, cholecystitis, diverticulosis, ischemic bowel, pancreatitis, hepatitis, UTI, gastroenteritis, AAA, incarcerated hernia, bowel obstruction, c onstipation, inflammatory bowel, hepatitis, peptic ulcer disease, splenic infarction, perforated viscus, testicular torsion, this is not meant to be an all-inclusive list EKG interpreted by me (3pts min.). @ -As above X-rays interpreted by me (1pt min.). @ -None done CT interpreted by me (1pt min.). @ -None done U/S interpreted by me (1pt. min.). @ -None done What testing was considered but not performed or refused? (CT, X-rays, U/S, labs)? Why? @ -None What meds were considered but not given or refused? Why? @ -None Did you discuss the management of the patient with other professionals (professionals i.e. , PA, [employer], lab, RT, psych nurse, certified social workers in health care, instructional specialist, teacher, worldwide chief creative officer, caser in)? Give summary @ -Case discussed with Dr. santiago who states he will notify Dr. Dill for procedure Was smoking cessation discussed for >3mins.? @ -No Was critical care preformed (if so, how long)? @ -No Were there social determinants of health that impacted care today? How? (H omelessness, low income, unemployed, alcoholism, drug addiction, transportation, low edu. Level, literacy, decrease access to med. care, alf, rehab)? @ -No Was there de-escalation of care discussed even if they declined (Discuss DNR or withdrawal of care, Hospice)? DNR status @ -No What co-morbidities impacted this encounter? (DM, HTN, Smoking, COPD, CAD, Cancer, CVA, ARF, Chemo, Hep., AIDS, mental health diagnosis, sleep apnea, morbid obesity)? @ -None Was patient admitted / discharged? Hospital course, mention meds given and route, prescriptions, significant lab abnormalities, going to OR and other pertinent info. @ -Patient presents for recurrent ascites. Plan was to go to interventional radiology for drainage. There was several attempts to contact radiology. I did later get in touch with Dr. Dill who states he has not available and not on- call. Interventional radiology is no longer present. Patient is requesting discharge home. Patient is advised follow-up with her doctor for scheduling for paracentesis beginning of the week Undiagnosed new problem with uncertain prognosis? @ -No Drug Therapy requiring intensive monitoring for toxicity (Heparin, Nitro, Insulin, Cardizem)? @ -No Were any procedures done? @ -No Diagnosis/symptom? @ -Ascites Acute, or Chronic, or Acute on Chronic? @ -Acute Uncomplicated (without systemic symptoms) or Complicated (systemic symptoms)? @ -Default Side effects of treatment? @ -No Exacerbation, Progression, or Severe Exacerbation? @ -No Poses a threat to life or bodily function? How? (Chest pain, USA, CT, pneumonia, PE, COPD, DKA, ARF, appy, cholecystitis, CVA, Diverticulitis, Homicidal, Suicidal, threat to staff... and all critical care pts) @ -No (Cali Granger) - Lab Data Lab Results 02/26/24 02/26/24 02/26/24 Range/Units 11:32 11:32 11:32 WBC 6.6 (3.8-10.6) k/uL RBC 3.75 L (3.80-5.40) m/uL Hgb 10.8 L (11.4-16.0) gm/dL Hct 34.3 (34.0-46.0) % MCV 91.4 (80.0-100.0) fL MCH 28.8 (25.0-35.0) pg MCHC 31.5 (31.0-37.0) g/dL RDW 13.2 (11.5-15.5) % Plt Count 360 (150-450) k/uL MPV 7.1 Neutrophils % 69 % Lymphocytes % 23 % Monocytes % 4 % Eosinophils % 1 % Basophils % 1 % Neutrophils # 4.5 (1.3-7.7) k/uL Lymphocytes # 1.5 (1.0-4.8) k/uL Monocytes # 0.3 (0-1.0) k/uL Eosinophils # 0.1 (0-0.7) k/uL Basophils # 0.0 (0-0.2) k/uL PT 10.3 (10.0-12.5) sec INR 0.9 (<1.2) APTT 23.8 (22.0-30.0) sec Sodium 141 (137-145) mmol/L Potassium 3.8 (3.5-5.1) mmol/L Chloride 110 H (98-107) mmol/L Carbon Dioxide 23 (22-30) mmol/L Anion Gap 8 mmol/L BUN 20 H (7-17) mg/dL Creatinine 1.01 (0.52-1.04) mg/dL Est GFR (CKD-EPI)AfAm 66 (>60 ml/min/1.73 sqM) Est GFR (CKD-EPI)NonAf 57 (>60 ml/min/1.73 sqM) Glucose 107 H (74-99) mg/dL Calcium 7.7 L (8.4-10.2) mg/dL Total Bilirubin 0.2 (0.2-1.3) mg/dL AST 25 (14-36) U/L ALT 13 (4-34) U/L Alkaline Phosphatase 121 (38-126) U/L Total Protein 6.3 (6.3-8.2) g/dL Albumin 3.7 (3.5-5.0) g/dL Disposition <Rosibel Rasmussen - Last Filed: 02/26/24 10:20> Is patient prescribed a controlled substance at d/c from ED?: No Time of Disposition: 13:20 <Cali Grangre - Last Filed: 02/26/24 17:35> Clinical Impression: Ascites Disposition: HOME SELF-CARE Instructions (If sedation given, give patient instructions): Ascites (ED) Additional Instructions: Please do follow-up with your oncologist and primary care physician beginning of the week. Please have them set up paracentesis for Thursday. Return for increased pain, difficulty breathing, worsening or changing symptoms or any other concerns. Referrals: Chance Reynolds MD [Primary Care Provider] - 1-2 days
[2024-02-26 12:02] LABS: Basophils % (A) 1 %; Eosinophils # (A) 0.1 k/uL (0-0.7); Eosinophils % (A) 1 %; HCT 34.3 % (34.0-46.0); HGB 10.8 gm/dL (11.4-16.0); Lymphocytes # (A) 1.5 k/uL (1.0-4.8); Lymphocytes % (A) 23 %; MCH 28.8 pg (25.0-35.0); MCHC 31.5 g/dL (31.0-37.0); MCV 91.4 fL (80.0-100.0); Mean Platelet Volume 7.1; Monocytes # (A) 0.3 k/uL (0-1.0); Monocytes % (A) 4 %; Neutrophils # (A) 4.5 k/uL (1.3-7.7); Neutrophils % (A) 69 %; Platelet Count 360 k/uL (150-450); RBC 3.75 m/uL (3.80-5.40); RDW 13.2 % (11.5-15.5); WBC 6.6 k/uL (3.8-10.6)
[2024-02-26 12:08] LABS: INR 0.9 (<1.2); Partial Thromboplastin Time 23.8 sec (22.0-30.0); Prothrombin Time 10.3 sec (10.0-12.5)
[2024-02-26 12:22] LABS: ALT 13 U/L (4-34); AST 25 U/L (14-36); African American GFR (CKD) 66 (>60 ml/min/1.73 sqM); Albumin 3.7 g/dL (3.5-5.0); Alkaline Phosphatase 121 U/L (38-126); Anion Gap 8 mmol/L; Blood Urea Nitrogen 20 mg/dL (7-17); Calcium 7.7 mg/dL (8.4-10.2); Carbon Dioxide 23 mmol/L (22-30); Chloride 110 mmol/L (98-107); Glucose 107 mg/dL (74-99); Non-African American GFR(CKD) 57 (>60 ml/min/1.73 sqM); Potassium 3.8 mmol/L (3.5-5.1); Sodium 141 mmol/L (137-145); Total Bilirubin 0.2 mg/dL (0.2-1.3); Total Protein 6.3 g/dL (6.3-8.2)
[2024-02-26 14:16] VITALS: BP 133/95; PULSE 75; RESP 18
== END 2024-02-26 18:17 | disposition home or self-care (01) ==
LOC: EC 08:58
DX: R18.8 Other ascites (principal); Z87.891 Personal history of nicotine dependence; Z88.0 Allergy status to penicillin
CPT/HCPCS: 36415; 80053; 85025; 85610; 85730; 99283

== ENCOUNTER 2024-02-29 08:55 | Outpatient (CLI) | payer MEDICARE, OTHER ==
[2024-02-29 09:41] VITALS: RESP 16; TEMP 98.1
[2024-02-29 10:50] VITALS: BP 135/85; PULSE 73
--- NOTE | 2024-02-29 10:57 | US ---
EXAMINATION TYPE: US paracentesis abd w/image DATE OF EXAM: 02/29/2024 9:48 AM CLINICAL INDICATION:Female, 68 years old with history of R18.8 ascites; COMPARISON: 02/05/2024 ATTENDING: Dr. Neil Bradshaw PROCEDURE: Informed consent was obtained. The risks of the procedure were extensively explained incl uding risk of damage to surrounding bowel with perforation and need for additional procedures. Proced ure was performed in the ultrasound procedure suite. Ultrasound imaging of the abdomen demonstrate as citic fluid. An appropriate access site was localized to the right lower abdomen. Timeout was taken p er protocol. The skin was prepped and draped in the usual sterile fashion and then locally anesthetiz ed with 1% lidocaine. The peritoneal cavity was then accessed via a 5-Slovak one-step needle/cathete r. Approximately 2400 cc of clear straw-colored fluid was obtained. Postprocedural imaging of the a bdomen demonstrate a minimal amount of abdominal fluid. Patient tolerated procedure well without immediate complication. Hemostasis at the procedural site w as obtained with a sterile bandage placed. The patient was monitored in the holding area following th e procedure and was subsequently discharged in stable condition. IMPRESSION: Ultrasound guided paracentesis, with approximately 2400 cc of clear straw-colored fluid drained. No immediate complications were evident.
== END 2024-02-29 10:53 | disposition home or self-care (01) ==
LOC: RADPROMAIN 08:55
PROVIDERS: ATTEND Internal Medicine Hematology & Oncology
DX: R18.8 Other ascites (principal)
CPT/HCPCS: 49083

== ENCOUNTER → 2024-05-05 | Outpatient (CLI) | payer MEDICARE, OTHER | END | disposition home or self-care (01) | LOC: LABPRL 12:00 | PROVIDERS: ATTEND Internal Medicine Hematology & Oncology | DX: C56.1 Malignant neoplasm of right ovary (principal) | CPT/HCPCS: 82043; 82570 ==

== ENCOUNTER → 2024-05-20 | Outpatient (CLI) | payer MEDICARE, OTHER ==
[2024-05-20 11:22] LABS: African American GFR (CKD) 63 (>60 ml/min/1.73 sqM); Blood Urea Nitrogen 21 mg/dL (7-17); Non-African American GFR(CKD) 54 (>60 ml/min/1.73 sqM)
--- NOTE | 2024-05-20 14:05 | CT ---
EXAMINATION TYPE: CT abdomen pelvis w con CT DLP: 577.8 mGycm, Automated exposure control for dose reduction was used. 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 Contrast used:80 mL of Isovue 300 with IV Contrast, (none if empty) Oral contrast used: with Oral Contrast (none if empty) FINDINGS: LOWER CHEST: Moderate to large left pleural effusion and small right. ABDOMEN LIVER: There remains a nodular contour to liver. No focal masses identified. GALLBLADDER AND BILE DUCTS: Unremarkable. PANCREAS: Unremarkable. SPLEEN: Nonenlarged. ADRENAL GLANDS: Unremarkable. KIDNEYS AND URETERS: No evidence of hydronephrosis or renal calculus. The ureters are unremarkable. PELVIS BLADDER: Unremarkable REPRODUCTIVE: The uterus appears surgically absent. ABDOMEN & PELVIS STOMACH AND BOWEL: No evidence of bowel obstruction. Scattered colonic diverticula. PERITONEUM/RETROPERITONEUM: No evidence of pneumoperitoneum. 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 VASCULATURE: No evidence for aneurysm or obstruction. MUSCULOSKELETAL: No acute osseous abnormalities LYMPH NODES: No gross evidence for lymphadenopathy. SOFT TISSUE/ABDOMINAL WALL: Unremarkable IMPRESSION: 1. Stable upper abdominal peripherally calcified lesions possibly representing metastatic disease co mpared to 02/03/2024. No new or enlarging lymph nodes identified. 2. Moderate to large left and small right pleural effusions. Moderate amount of ascites in abd omen. 3. colonic diverticulosis. 4. Nodular contour to liver remains correlate for cirrhosis.
== END | disposition home or self-care (01) ==
LOC: RADCTMAIN 10:34
PROVIDERS: ATTEND Internal Medicine Hematology & Oncology
DX: C56.1 Malignant neoplasm of right ovary
CPT/HCPCS: 36415; 74177; 82565; 84520